=== PATIENT | female | born 2000 | race African-American/Black ===

== ENCOUNTER → 2025-03-24 | Outpatient (CLI) | payer MEDICAID ==
[2025-03-24 12:24] LABS: Hematocrit 40.8 % (36.0-46.0); Hemoglobin 13.4 g/dL (12.2-16.2); Mean Corpuscular Hemoglobin 30.6 pg (28.0-32.0); Mean Corpuscular Volume 93.0 fL (80.0-100.0); Nucleated Red Blood Cells % 0.0 %
[2025-03-24 13:30] LABS: Alanine Aminotransferase 11 U/L (7-40); Albumin 4.4 g/dL (3.2-4.8); Alkaline Phosphatase 81 U/L (46-116); Anion Gap 12 (5-15); BUN/Creatinine Ratio 10.7 (10.0-20.0); Bilirubin, Total 0.6 mg/dL (0.2-1.0); Calcium 9.4 mg/dL (8.7-10.4); Carbon Dioxide 21 mmol/L (20-31); Glucose 92 mg/dL (74-106); Potassium 3.6 mmol/L (3.5-5.1); Sodium 141 mmol/L (136-145); Total Protein 7.5 g/dL (5.7-8.2)
[2025-03-24 13:44] LABS: Blood Urea Nitrogen 6 mg/dL (9-23); Chloride 108 mmol/L (98-107)
== END | disposition home or self-care (01) ==
LOC: LAB 11:50
DX: E61.1 Iron deficiency (principal); D68.59 Other primary thrombophilia; I82.441 Acute embolism and thrombosis of right tibial vein
CPT/HCPCS: 36415; 80053; 85025

== ENCOUNTER 2025-05-06 09:27 | Outpatient (CLI) | payer OTHER, MEDICAID ==
[2025-05-06 09:58] LABS: Hematocrit 39.9 % (36.0-46.0); Hemoglobin 13.5 g/dL (12.2-16.2); Mean Corpuscular Hemoglobin 30.8 pg (28.0-32.0); Mean Corpuscular Volume 91.0 fL (80.0-100.0); Nucleated Red Blood Cells % 0.1 %
[2025-05-06 10:57] LABS: Free T4 (Free Thyroxine) 1.15 ng/dL (0.89-1.76); Thyroid Stimulating Hormone 1.06 uIU/mL (0.55-4.78)
[2025-05-06 10:58] LABS: Follicle Stimulating Hormone 5.76 IU/L (SEE BELOW)
[2025-05-06 11:02] LABS: Beta HCG, Quantitative 0.8 mIU/mL (1.5-4.2)
== END 2025-05-06 17:00 | disposition home or self-care (01) ==
LOC: LAB 09:27
DX: N93.9 Abnormal uterine and vaginal bleeding, unspecified (principal); N92.0 Excessive and frequent menstruation with regular cycle
CPT/HCPCS: 36415; 82626; 82670; 83001; 83002; 83036; 83525; 84146; 84270; 84402; 84403; 84439; 84443; 84702; 85025